=== PATIENT | male | born 1965 | race Caucasian/White ===

== ENCOUNTER 2017-10-25 18:45 | Emergency (ER) | payer OTHER ==
--- NOTE | 2017-10-25 19:00 | EDM.PDOC ---
ED HPI GENERAL MEDICAL PROBLEM - General Chief Complaint: Gastrointestinal Problem Stated Complaint: WHOLE STOMACH AND DOWN HURTS Time Seen by Provider: 10/25/17 18:59 Source of Information: Reports: Patient History Limitations: Reports: No Limitations - History of Present Illness INITIAL COMMENTS - FREE TEXT/NARRATIVE: HISTORY AND PHYSICAL: History of present illness: Patient is a 52-year-old male who presents to the emergency room with complaints of left low abdominal pain that radiates down the anterior portion of the left groin and thigh. He states he is concerned that this is his "kidney ". This has been going on for 2-3 days. He denies any fever, chills, chest pain or shortness of breath. Denies any nausea, vomiting, diarrhea, constipation or dysuria. Denies any concerns of STDs or testicular involvement. Review of systems: As per history of present illness and below otherwise all systems reviewed and negative. Past medical history: As per history of present illness and as reviewed below otherwise noncontributory. Surgical history: As per history of present illness and as reviewed below otherwise noncontributory. Social history: No reported history of drug or alcohol abuse. Family history: As per history of present illness and as reviewed below otherwise noncontributory. Physical exam: General: Well-developed and well-nourished 52-year-old male. Alert and oriented. Nontoxic appearing and in no acute distress. HEENT: Atraumatic, normocephalic, pupils equal and reactive bilaterally, negative for conjunctival pallor or scleral icterus, mucous membranes moist, throat clear, neck supple, nontender, trachea midline. No drooling or trismus noted. No meningeal signs Lungs: Clear to auscultation, breath sounds equal bilaterally, chest nontender. Heart: S1S2, regular rate and rhythm without overt murmur Abdomen: Soft, nondistended, nontender. Negative for masses or hepatosplenomegaly. Negative for costovertebral tenderness. Pelvis: Stable nontender. Genitourinary: This was done with consent and a hi lo driver at the bedside. I do not appreciate any inguinal hernias. Testicles are thin normal limits, nontender with palpation. No erythema or lesions noted. Rectal: Deferred. Skin: Intact, warm, dry. No lesions or rashes noted. Extremities: Atraumatic, negative for cords or calf pain. Neurovascular unremarkable. Neuro: Awake, alert, oriented. Cranial nerves II through XII unremarkable. Cerebellum unremarkable. Motor and sensory unremarkable throughout. Exam nonfocal. Notes: Lab work is unremarkable. CT of the abdomen and pelvis shows no evidence of acute findings. Patient's discomfort does sound muscular in nature. He states when he strains the anterior pelvic area with stretching or rotating he does have increased pain. We discussed her care measures. Patient voices understanding and is agreeable to plan of care. Denies any further questions or concerns at this time. Diagnostics: CBC, CMP, UA, CT abd/pelvis withou Therapeutics: None Prescription: Voltaren 50mg (#20) Flexeril PRN (#10) Impression: Groin pain, left Plan: 1. Rest the affected area as able. No strenous lifting. 2. Alternate heat and ice therapy as needed. 3. Tylenol as needed for pain. Voltaren as prescribed. Please take with food and do not take with any other NSAIDS (such as Ibuprofen or Aleve). You may use the muscle relaxer as needed for nighttime use. Do not take while driving as it can cause drowsiness. 4. Follow-up with your primary caregiver in the next 1-2 days. Return to the ED as needed and as discussed. Definitive disposition and diagnosis as appropriate pending reevaluation and review of above. Duration: Day(s): Right Abdomen Pain Score (Numeric/FACES): 4 - Related Data Allergies Allergy/AdvReac Type Severity Reaction Status Date / Time Penicillins Allergy Itching Verified 10/25/17 19:12 Home Meds: Home Meds Cyclobenzaprine [Flexeril] 10 mg PO BID PRN #10 tab 10/25/17 [Rx] Diclofenac Sodium [Voltaren] 50 mg PO BID PRN #20 tab.ec 10/25/17 [Rx] Past Medical History - Past Health History Medical/Surgical History: Denies Medical/Surgical History Other HEENT History: has top denture and lower partial Cardiovascular History: Reports: None Respiratory History: Reports: None Gastrointestinal History: Reports: Other (See Below) Other Gastrointestinal History: occasional heartburn Genitourinary History: Reports: None Musculoskeletal History: Reports: Fracture Other Musculoskeletal History: hx fx wrist Neurological History: Reports: Vertigo Psychiatric History: Reports: None Endocrine/Metabolic History: Reports: None Hematologic History: Reports: None Immunologic History: Reports: None Oncologic (Cancer) History: Reports: None Dermatologic History: Reports: None - Past Surgical History Musculoskeletal Surgical History: Reports: Carpal Tunnel ED ROS GENERAL - Review of Systems Review Of Systems: ROS reveals no pertinent complaints other than HPI. ED EXAM, GI/ABD - Physical Exam Exam: See Below (See dictation) Course - Vital Signs Last Recorded V/S: Last Vital Signs Temp 98.7 F 10/25/17 18:59 Pulse 97 10/25/17 20:40 Resp 20 10/25/17 20:40 BP 103/73 10/25/17 20:40 Pulse Ox 97 10/25/17 20:40 - Orders/Labs/Meds Orders: Active Orders 24 hr Category Date Time Status Abdomen Pelvis wo Cont [CT] Stat Exams 10/25/17 19:25 Taken UA W/MICROSCOPIC [URIN] Stat Lab 10/25/17 19:20 Ordered Labs: Laboratory Tests 10/25/17 10/25/17 10/25/17 Range/Units 19:20 19:32 19:32 WBC 9.14 (4.0-11.0) K/uL RBC 4.71 (4.50-5.90) M/uL Hgb 14.3 (13.0-17.0) g/dL Hct 43.3 (38.0-50.0) % MCV 91.9 (80.0-98.0) fL MCH 30.4 (27.0-32.0) pg MCHC 33.0 (31.0-37.0) g/dL RDW Std Deviation 48.4 (28.0-62.0) fl RDW Coeff of Chante 14 (11.0-15.0) % Plt Count 242 (150-400) K/uL MPV 11.20 (7.40-12.00) fL Neut % (Auto) 51.3 (48.0-80.0) % Lymph % (Auto) 32.4 (16.0-40.0) % Coke % (Auto) 9.5 (0.0-15.0) % Eos % (Auto) 6.5 (0.0-7.0) % Baso % (Auto) 0.3 (0.0-1.5) % Neut # (Auto) 4.7 (1.4-5.7) K/uL Lymph # (Auto) 3.0 H (0.6-2.4) K/uL Coke # (Auto) 0.9 H (0.0-0.8) K/uL Eos # (Auto) 0.6 (0.0-0.7) K/uL Baso # (Auto) 0.0 (0.0-0.1) K/uL Nucleated RBC % 0.0 /100WBC Nucleated RBCs # 0 K/uL Sodium 141 (136-148) mmol/L Potassium 4.3 (3.5-5.1) mmol/L Chloride 106 (98-107) mmol/L Carbon Dioxide 26.5 (21.0-32.0) mmol/L BUN 17 (7.0-18.0) mg/dL Creatinine 1.2 (0.8-1.3) mg/dL Est Cr Clr Drug Dosing 68.88 mL/min Estimated GFR (MDRD) > 60.0 ml/min Glucose 119 H (74-106) mg/dL Calcium 10.0 (8.5-10.1) mg/dL Total Bilirubin 0.1 L (0.2-1.0) mg/dL AST 17 (15-37) IU/L ALT 30 (14-63) IU/L Alkaline Phosphatase 72 (46-116) U/L Total Protein 7.8 (6.4-8.2) g/dL Albumin 3.8 (3.4-5.0) g/dL Globulin 4.0 H (2.0-3.5) g/dL Albumin/Globulin Ratio 1.0 L (1.3-2.8) Urine Color YELLOW Urine Appearance CLEAR Urine pH 5.5 (5.0-8.0) Ur Specific Datto >= 1.030 (1.001-1.035) Urine Protein NEGATIVE (NEGATIVE) mg/dL Urine Glucose (UA) NEGATIVE (NEGATIVE) mg/dL Urine Ketones TRACE H (NEGATIVE) mg/dL Urine Occult Blood NEGATIVE (NEGATIVE) Urine Nitrite NEGATIVE (NEGATIVE) Urine Bilirubin NEGATIVE (NEGATIVE) Urine Urobilinogen 0.2 (<2.0) EU/dL Ur Leukocyte Esterase NEGATIVE (NEGATIVE) Urine RBC 0-1 (0-2/HPF) Urine WBC 0-2 (0-5/HPF) Ur Epithelial Cells RARE (NONE-FEW) Urine Bacteria RARE (NEGATIVE) Departure - Departure Time of Disposition: 20:17 Disposition: Home, Self-Care 01 Clinical Impression: Left groin pain - Discharge Information Prescriptions: Cyclobenzaprine [Flexeril] 10 mg PO BID PRN #10 tab PRN Reason: Pain Diclofenac Sodium [Voltaren] 50 mg PO BID PRN #20 tab.ec PRN Reason: Pain Instructions: Abdominal Pain, Adult, Muscle Strain, [id number] Referrals: PCP,None [Primary Care Provider] - Forms: ED Department Discharge Additional Instructions: The following information is given to patients seen in the emergency department who are being discharged to home. This information is to outline your options for follow-up care. We provide all patients seen in our emergency department with a follow-up referral. The need for follow-up, as well as the timing and circumstances, are variable depending upon the specifics of your emergency department visit. If you don't have a primary care physician on staff, we will provide you with a referral. We always advise you to contact your personal physician following an emergency department visit to inform them of the circumstance of the visit and for follow-up with them and/or the need for any referrals to a consulting specialist. The emergency department will also refer you to a specialist when appropriate. This referral assures that you have the opportunity for follow-up care with a specialist. All of these measure are taken in an effort to provide you with optimal care, which includes your follow-up. Under all circumstances we always encourage you to contact your private physician who remains a resource for coordinating your care. When calling for follow-up care, please make the office aware that this follow-up is from your recent emergency room visit. If for any reason you are refused follow-up, please contact the [facility] Emergency Department at and asked to speak to the emergency department charge nurse. [facility] [address] [place] [id number] 1. Rest the affected area as able. No strenous lifting. 2. Alternate heat and ice therapy as needed. 3. Tylenol as needed for pain. Voltaren as prescribed. Please take with food and do not take with any other NSAIDS (such as Ibuprofen or Aleve). You may use the muscle relaxer as needed for nighttime use. Do not take while driving as it can cause drowsiness. 4. Follow-up with your primary caregiver in the next 1-2 days. Return to the ED as needed and as discussed. - My Orders Last 24 Hours: My Active Orders 10/25/17 19:20 UA W/MICROSCOPIC [URIN] Stat 10/25/17 19:25 Abdomen Pelvis wo Cont [CT] Stat - Assessment/Plan Last 24 Hours: My Active Orders 10/25/17 19:20 UA W/MICROSCOPIC [URIN] Stat 10/25/17 19:25 Abdomen Pelvis wo Cont [CT] Stat
[2017-10-25 20:02] LABS: CHLORIDE,CL 106 mmol/L (98-107); SODIUM,NA 141 mmol/L (136-148)
[2017-10-25 20:46] VITALS: BP 103/73
--- NOTE | 2017-10-26 09:11 | CT ---
EXAM DATE: 10/25/17 PATIENT'S AGE: 52 Patient: LOIS OLSEN Facility: [place], [place] Site . Site : 1965 Study: CT Abdomen/Pelvis wo cont. [id number]/10/2018 8:02:07 PM Ordering Physician: Doctor Blandon Final Report: INDICATION: right sided flank pain and left sided groin pain for 8 months. TECHNIQUE: CT Abdomen and pelvis without i.v. contrast. Coronal and sagittal reformats were obtained. CONTRAST: None COMPARISON: None FINDINGS: Lower chest: Unremarkable. Liver: Unremarkable. Spleen: Unremarkable. Pancreas: Unremarkable. Gallbladder: Unremarkable. Kidney: Unremarkable. No kidney or ureteral stones or obstruction seen. Adrenal: Unremarkable. Bowel: Unremarkable. The appendix is normal in appearance and size. Vascular: Unremarkable. Lymph: Unremarkable. Peritoneum: Unremarkable. No pneumoperitoneum is seen. No significant ascites is noted. Pelvis: Unremarkable. Soft tissue: Unremarkable. Bone: Unremarkable for age. IMPRESSION: 1. Unremarkable with no CT correlate for the patient`s symptoms seen. Please note that all CT scans at this facility use dose modulation, iterative reconstruction, and/or weight-based dosing when appropriate to reduce radiation dose to as low as reasonably achievable. Dictated by: John Garay MD @ 10/25/2017 20:10:15 (Electronic Signature) Report Signed by Proxy. [facility]
== END 2017-10-25 20:43 | disposition home or self-care (01) ==
LOC: MW.ED 18:45
DX: R10.32 Left lower quadrant pain (principal); Z88.0 Allergy status to penicillin
CPT/HCPCS: 36415; 74176; 74176-26; 80053; 81001; 85025; 99284-25

== ENCOUNTER 2019-03-25 13:09 | Emergency (ER) | payer OTHER ==
[2019-03-25 13:46] VITALS: BP 131/93; PULSE 119
--- NOTE | 2019-03-25 14:32 | EDM.PDOC ---
ED HPI GENERAL MEDICAL PROBLEM - General Chief Complaint: Genitourinary Problem Stated Complaint: ABDOMINAL PAIN Time Seen by Provider: 03/25/19 14:20 Source of Information: Reports: Patient History Limitations: Reports: No Limitations - History of Present Illness Onset: Today (around 9) Duration: Resolved Prior to Arrival LLQ Pain Score (Numeric/FACES): 10 - Related Data Allergies Allergy/AdvReac Type Severity Reaction Status Date / Time Penicillins Allergy Itching Verified 03/25/19 13:43 Home Meds: Home Meds . [No Known Home Meds] 03/25/19 [History] Past Medical History - Past Health History Medical/Surgical History: Denies Medical/Surgical History Other HEENT History: has top denture and lower partial Cardiovascular History: Reports: None Respiratory History: Reports: None Gastrointestinal History: Reports: Other (See Below) Other Gastrointestinal History: occasional heartburn Genitourinary History: Reports: None Musculoskeletal History: Reports: Fracture Other Musculoskeletal History: hx fx wrist Neurological History: Reports: Vertigo Psychiatric History: Reports: None Endocrine/Metabolic History: Reports: None Hematologic History: Reports: None Immunologic History: Reports: None Oncologic (Cancer) History: Reports: None Dermatologic History: Reports: None - Infectious Disease History Infectious Disease History: Reports: Chicken Pox - Past Surgical History Head Surgeries/Procedures: Reports: None Musculoskeletal Surgical History: Reports: Carpal Tunnel Social & Family History - Family History Family Medical History: Noncontributory - Tobacco Use Smoking Status *Q: Never Smoker Second Hand Smoke Exposure: No - Caffeine Use Caffeine Use: Reports: Coffee - Recreational Drug Use Recreational Drug Type: Reports: Methamphetamine Recreational Drug Use Frequency: Weekly ED ROS GENERAL - Review of Systems Review Of Systems: See Below Constitutional: Reports: No Symptoms HEENT: Reports: No Symptoms Respiratory: Reports: No Symptoms Cardiovascular: Reports: No Symptoms Endocrine: Reports: No Symptoms GI/Abdominal: Reports: Abdominal Pain (No abdominal pain at time of my evaluation) : Reports: No Symptoms Musculoskeletal: Reports: No Symptoms Skin: Reports: No Symptoms Neurological: Reports: No Symptoms ED EXAM, GI/ABD - Physical Exam Exam: See Below Exam Limited By: No Limitations General Appearance: Alert, WD/WN, No Apparent Distress Eyes: Bilateral: Normal Appearance, EOMI Ears: Normal External Exam, Normal Canal, Hearing Grossly Normal, Normal TMs Nose: Normal Inspection, Normal Mucosa, No Blood Throat/Mouth: Normal Inspection, Normal Lips, Normal Teeth, Normal Gums, Normal Oropharynx, Normal Voice, No Airway Compromise Head: Atraumatic, Normocephalic Neck: Normal Inspection, Supple, Non-Tender, Full Range of Motion Respiratory/Chest: No Respiratory Distress, Lungs Clear, Normal Breath Sounds Cardiovascular: Normal Peripheral Pulses, Regular Rate, Rhythm, No Edema, No Gallop, No JVD, No Murmur, No Rub GI/Abdominal Exam: Normal Bowel Sounds, Soft, Non-Tender, No Organomegaly, No Distention, No Abnormal Bruit, No Mass, Pelvis Stable (Male) Exam: No Hernia, Normal Inspection, Normal Prostate, Circumcised Rectal (Males) Exam: Deferred Back Exam: Normal Inspection, Full Range of Motion, NT Extremities: Normal Inspection, Normal Range of Motion, No Pedal Edema, Normal Capillary Refill Neurological: Alert, Oriented, CN II-XII Intact, Normal Cognition, Normal Gait, Normal Reflexes, No Motor/Sensory Deficits Lymphatic: No Adenopathy Course - Vital Signs Text/Narrative:: I examined this patient and his abdomen is completely at this time. He states that he notices at the height of his organism, he has severe pain in the left lower abdomen and after he has fully released, on this occasion, the pain has gone away. He states that he has ED and has for a number of years. Last Recorded V/S: Last Vital Signs Temp 98.7 F 03/25/19 13:43 Pulse 119 H 03/25/19 13:43 Resp 16 03/25/19 13:43 BP 131/93 H 03/25/19 13:43 Pulse Ox 95 03/25/19 13:43 - Orders/Labs/Meds Orders: Active Orders 24 hr Category Date Time Status CBC WITH AUTO DIFF [HEME] Stat Lab 03/25/19 14:10 Received CHLAMYDIA AND GONORRHEA BY TMA Stat Lab 03/25/19 Ordered COMPREHENSIVE METABOLIC PN,CMP [CHEM] Stat Lab 03/25/19 14:10 Received UA RFX CARLEE AND CULT IF INDIC [URIN] Stat Lab 03/25/19 13:49 Received Departure - Departure Time of Disposition: 14:37 Disposition: Home, Self-Care 01 Condition: Good Clinical Impression: Nonspecific abdominal pain - Discharge Information *PRESCRIPTION DRUG MONITORING PROGRAM REVIEWED*: Yes *COPY OF PRESCRIPTION DRUG MONITORING REPORT IN PATIENT DAMIAN: Yes Referrals: PCP,None [Primary Care Provider] - Additional Instructions: Follow up with a urologist in the next two to four days. Rest for the next 24 hours. Return to the ED if your condition gets worse or should you have any questions or concerns. The following information is given to patients seen in the emergency department who are being discharged to home. This information is to outline your options for follow-up care. We provide all patients seen in our emergency department with a follow-up referral. The need for follow-up, as well as the timing and circumstances, are variable depending upon the specifics of your emergency department visit. If you don't have a primary care physician on staff, we will provide you with a referral. We always advise you to contact your personal physician following an emergency department visit to inform them of the circumstance of the visit and for follow-up with them and/or the need for any referrals to a consulting specialist. The emergency department will also refer you to a specialist when appropriate. This referral assures that you have the opportunity for follow-up care with a specialist. All of these measure are taken in an effort to provide you with optimal care, which includes your follow-up. Under all circumstances we always encourage you to contact your private physician who remains a resource for coordinating your care. When calling for follow-up care, please make the office aware that this follow-up is from your recent emergency room visit. If for any reason you are refused follow-up, please contact the [facility] Emergency Department at and asked to speak to the emergency department charge nurse. Sepsis Event Note - Evaluation Sepsis Screening Result: No Definite Risk - Focused Exam Vital Signs: Vital Signs Temp Pulse Resp BP Pulse Ox 03/25/19 13:43 98.7 F 119 H 16 131/93 H 95 Date Exam was Performed: 03/25/19 Time Exam was Performed: 14:26 - My Orders Last 24 Hours: My Active Orders 03/25/19 13:49 UA RFX CARLEE AND CULT IF INDIC [URIN] Stat - Assessment/Plan Last 24 Hours: My Active Orders 03/25/19 13:49 UA RFX CARLEE AND CULT IF INDIC [URIN] Stat
[2019-03-25 14:54] LABS: CARBON DIOXIDE,CO2 25.7 mmol/L (21.0-32.0); POTASSIUM,K 4.2 mmol/L (3.5-5.1)
== END 2019-03-25 14:52 | disposition home or self-care (01) ==
LOC: MW.ED 13:09
DX: R10.32 Left lower quadrant pain (principal); Z88.0 Allergy status to penicillin
CPT/HCPCS: 36415; 80053; 81003; 85025; 87491; 87591; 99283; 99284

== ENCOUNTER 2024-03-12 17:20 | Emergency (ER) | payer OTHER ==
[2024-03-12] MEDS: Haloperidol Lactate 5 MG/ML SDV IM STA ×2 (18:08→18:09)
[2024-03-12] MEDS: Bacitracin Oint 1 GM U/D Packet TOP ONE (18:09)
[2024-03-12] MEDS: Midazolam 5 MG/ML SDV IM STA (18:09)
[2024-03-12 19:12] VITALS: BP 112/74; PULSE 74
== END 2024-03-12 21:50 | disposition home or self-care (01) ==
LOC: MW.ED 17:20
DX: S01.111A Laceration without foreign body of right eyelid and periocular area, initial encounter (principal); F10.120 Alcohol abuse with intoxication, uncomplicated; R41.82 Altered mental status, unspecified; R45.1 Restlessness and agitation; R26.81 Unsteadiness on feet; Z88.0 Allergy status to penicillin; Y93.02 Activity, running; Y90.9 Presence of alcohol in blood, level not specified; X58.XXXA Exposure to other specified factors, initial encounter
CPT/HCPCS: 12011; 70450; 72125; 96372; 99284; J1630; J2250

== ENCOUNTER 2024-05-26 15:44 | Emergency (ER) | payer OTHER ==
[2024-05-26] MEDS ORDERED: Diphtheria,Pertussis(Acell),Tetanus Vaccine 0.5 ML Syringe IM ONE (15:49)
[2024-05-26] MEDS: Sodium Chloride 0.9% 1,000 ML IV ONE (15:52)
[2024-05-26] MEDS: LORazepam 2 MG/ML SDV IVPUSH ONE ×2 (15:52→18:15)
[2024-05-26 15:59] VITALS: BP 108/67; PULSE 81
[2024-05-26] MEDS: Ziprasidone Mesylate 20 MG in Water For Injection, Sterile 1.2 ML IM ONE (16:01)
[2024-05-26 16:03] LABS: BASOPHILS ABSOLUTE AUTO 0.03 K/uL (0.00-0.20); BASOPHILS PERCENT AUTO 0.3 % (0.0-1.0); EOSINOPHILS ABSOLUTE AUTO 0.69 K/uL (0.00-0.45); HEMATOCRIT 44.8 % (42.0-52.0); HEMOGLOBIN 14.4 g/dL (14.0-18.0); IMMATURE GRAN ABSOLUTE AUTO 0.12 K/uL (0.00-0.05); LYMPHOCYTES ABSOLUTE AUTO 3.99 K/uL (1.00-4.80); LYMPHOCYTES PERCENT AUTO 34.5 % (24.0-44.0); MEAN CORPUSCULAR HEMOGLOBIN 28.6 pg (28.0-32.0); MEAN CORPUSCULAR HGB CONC 32.1 g/dL (32.0-36.0); MEAN CORPUSCULAR VOLUME 89.1 fL (83.0-99.0); MEAN PLATELET VOLUME 11.1 fL (9.4-12.4); MONOCYTES ABSOLUTE AUTO 1.05 K/uL (0.00-0.80); MONOCYTES PERCENT AUTO 9.1 % (0.0-8.0); NEUTROPHILS ABSOLUTE AUTO 5.68 K/uL (1.80-7.70); NEUTROPHILS PERCENT AUTO 49.1 % (41.0-71.0); PLATELET COUNT,PLT 222 K/uL (150-400); RED BLOOD CELL COUNT 5.03 M/uL (4.52-5.90); WHITE BLOOD CELL COUNT,WBC 11.56 K/uL (3.9-11.3)
[2024-05-26 16:25] LABS: INR 1.09 (0.86-1.11); PTT,PARTIAL THROMBOPLSTIN TIME 23.5 SEC (23.9-30.7)
[2024-05-26 16:37] LABS: ALANINE AMINOTRANSFERASE,ALT 46 IU/L (14-63); ALBUMIN 3.6 g/dL (3.4-5.0); ALKALINE PHOSPHATASE 85 U/L (46-116); ASPARTATE AMNIOTRANSFERASE,AST 36 IU/L (15-37); BILIRUBIN TOTAL 0.2 mg/dL (0.2-1.0); BLOOD UREA NITROGEN,BUN 17 mg/dL (7.0-18.0); CALCIUM 9.7 mg/dL (8.5-10.1); CARBON DIOXIDE,CO2 25.9 mmol/L (21.0-32.0); CHLORIDE,CL 109 mmol/L (98-107); CREATININE 1.1 mg/dL (0.8-1.3); ETHANOL BLOOD MEDICAL 175 mg/dL; GLUCOSE RANDOM 106 mg/dL (74-106); LIPASE 145 U/L (16-77); MAGNESIUM 2.3 mg/dL (1.8-2.4); POTASSIUM,K 3.9 mmol/L (3.5-5.1); PROTEIN TOTAL,TP 7.3 g/dL (6.4-8.2); SODIUM,NA 145 mmol/L (136-148)
[2024-05-26 16:41] LABS: ESTIMATED GFR 77 mL/min (>60)
[2024-05-26] MEDS: LORazepam 2 MG/ML SDV ONE (16:46)
[2024-05-26] MEDS ORDERED: Iopamidol 755 MG/ML 500 ML Multipack Bottle IVPUSH STA (16:54)
== END 2024-05-26 17:24 ==
LOC: MW.ED 15:44
DX: S12.090A Other displaced fracture of first cervical vertebra, initial encounter for closed fracture (principal); S12.100A Unspecified displaced fracture of second cervical vertebra, initial encounter for closed fracture; S42.101A Fracture of unspecified part of scapula, right shoulder, initial encounter for closed fracture; S22.31XA Fracture of one rib, right side, initial encounter for closed fracture; F10.120 Alcohol abuse with intoxication, uncomplicated; Y90.6 Blood alcohol level of 120-199 mg/100 ml; Z88.0 Allergy status to penicillin; V29.99XA Rider (driver) (passenger) of other motorcycle injured in unspecified traffic accident, initial encounter
CPT/HCPCS: 36415; 70450; 70480; 70486; 71260; 72125; 72129; 72132; 74177; 80053; 80307; 83690; 83735; 85025; 85610; 85730; 86850; 86900; 86901; 96372; 96374; 99285; J2060; J3486; J7030; 99284

== ENCOUNTER 2024-07-26 10:27 | Emergency (ER) | payer OTHER ==
[2024-07-26 11:22] VITALS: BP 129/90; PULSE 89
== END 2024-07-26 11:16 | disposition home or self-care (01) ==
LOC: MW.ED 10:27
DX: L03.115 Cellulitis of right lower limb (principal); Z75.3 Unavailability and inaccessibility of health-care facilities; Z88.0 Allergy status to penicillin
CPT/HCPCS: 99283

== ENCOUNTER 2024-07-28 18:07 | Emergency (ER) | payer OTHER ==
[2024-07-28 20:46] VITALS: BP 130/96; PULSE 104
== END 2024-07-28 21:32 | disposition home or self-care (01) ==
LOC: MW.ED 18:07
DX: S96.911A Strain of unspecified muscle and tendon at ankle and foot level, right foot, initial encounter (principal); L03.116 Cellulitis of left lower limb; Z88.0 Allergy status to penicillin; Z79.899 Other long term (current) drug therapy; X58.XXXA Exposure to other specified factors, initial encounter; Y93.89 Activity, other specified
CPT/HCPCS: 73620-26-RT; 73620-RT; 93971-26-RT; 93971-RT; 99284

== ENCOUNTER 2024-08-30 12:58 | Emergency (ER) | payer OTHER ==
[2024-08-30 15:01] VITALS: BP 116/58; PULSE 82
== END 2024-08-30 15:00 | disposition home or self-care (01) ==
LOC: MW.ED 12:58
DX: R51.9 Headache, unspecified (principal); Z75.3 Unavailability and inaccessibility of health-care facilities; Z88.0 Allergy status to penicillin; Z79.899 Other long term (current) drug therapy
CPT/HCPCS: 70450; 72125; 99284; A9270; 99283